=== PATIENT | male | born 1965 | race Caucasian/White ===

== ENCOUNTER 2020-05-23 08:02 | Outpatient (CLI) | payer BC, SELFPAY ==
--- NOTE | ~2020-05-23 | XR_ITS ---
EXAMINATION: XR barium swallow DATE: 05/23/2020 09:17 INDICATION: Dysphagia. TECHNIQUE: The patient drank thick barium, gas-producing crystals, and thin barium. Fluoroscopy of th e hypopharynx and esophagus was performed. Fluoroscopy exposure time was 0.5 minutes. The total numbe r of images was 269. The dose-area product was 2.175 Gy-cm^2. COMPARISON: None. FINDINGS: There is a small sliding hiatal hernia. A Schatzki ring is noted. Esophageal motility is no rmal. There was no gastroesophageal reflux with provocative maneuvers. IMPRESSION: 1. Small sliding hiatal hernia. 2. Schatzki ring. Reviewed, dictated and finalized at location B.
== END 2020-05-23 08:03 | disposition home or self-care (01) ==
PROVIDERS: PCP Internal Medicine; Visit Provider Internal Medicine
DX: R13.10 Dysphagia, unspecified (principal)
CPT/HCPCS: 74220

== ENCOUNTER 2020-05-23 20:51 | Emergency (ER) | payer BC, SELFPAY ==
[2020-05-23 20:56] VITALS: BP 138/94; PULSE 91; RESP 14; TEMP 36.8; O2SAT 95
--- NOTE | 2020-05-23 21:00 | ED.GENADULT ---
HPI - General Adult General Chief complaint: Allergic Reaction Stated complaint: swelling in face Source: patient Mode of arrival: ambulatory Limitations: no limitations History of Present Illness HPI narrative: Bishop is a 55M with a PMH of GERD that presented to the ED with swelling in his neck. 20 minutes before coming to the ED he feels like the area under his chin and up to his ears bilaterally started to swell. It was accompanied by an itching in his throat. No tongue or lip swelling. He denies any SOB, CP, cough, syncope, or near syncope. He recently started a new medicine for GERD yesterday and had his first Barium swallow this morning. Related Data Home Medications Medication Instructions Recorded Confirmed pantoprazole 40 mg PO QAM 05/23/20 05/23/20 Allergies Allergy/AdvReac Type Severity Reaction Status Date / Time No Known Allergies Allergy Unknown Unverified 06/16/15 10:33 Review of Systems Constitutional: Constitutional: Denies chills and Denies fever(s) Eyes: Eyes: Reports no additional eye complaints ENT: Reports as per HPI Cardiovascular: Cardiovascular: Reports no additional cardiovascular complaints Respiratory: Respiratory: Reports no additional respiratory complaints Gastrointestinal: Gastrointestinal: Reports no additional gastrointestinal complaints Musculoskeletal: Musculoskeletal: Reports no additional musculoskeletal complaints Integumentary/Breasts: Skin/Breast: Reports system reviewed and no additional complaints, except as docu Neurologic: Reports system reviewed and no additional complaints, except as documented Psychiatric: Psychiatric: Reports no additional psychiatric complaints Endocrine: Endocrine: Reports no additional endocrine complaints Hematologic/Lymphatic: Hematologic/Lymphatic: Reports no additional hematologic/lymphatic complaints Allergic/Immunologic: Allergic/Immunologic: Reports no additional allergic/immunologic complaints Exam Const: General: no acute distress and alert Orientation/consciousness: patient oriented x3 Limitations: No altered mental status HENMT: Other: Did have slight swelling of the tissue underneath his chin and under his mandible. No tongue or lip swelling. Normocephalic. Atraumatic. Eyes: Conjunctivae: conjunctivae normal Pupils: Equal, round and reactive pupils present Neck: Other: sub mandibular and anterior cervical lymphadenopathy bilaterally. Chest: Chest palpation & inspection: normal inspection of the chest Resp: Effort & Inspection: normal respiratory effort, not labored and not tachypneic Auscultation: clear to auscultation bilaterally Cardio: Rate: regular rate Rhythm: regular rhythm Heart sounds: no murmurs GI: Inspection: non-distended GI Palp: Yes Soft to palpation and No Tenderness to palpation present (GI) Skin: General skin exam: normal color Rashes: no rashes Neuro: General: patient oriented x3 and moves all extremities Extrem: General: normal to inspection Psych: Appearance: grossly normal Mental Status: mental status grossly normal Thought content: Yes Normal thought content present Course Course Emergency Course: Bishop was seen. He was given 50mg of benadryl IM and 40mg of famotidine PO. Shortly after receiving this he started having resolution of symptoms. He was observed for another 2 hours during which time the symptoms continued to improve. Later he was discharged and instructed to take OTC benadryl and famotidine if symptoms returned. Vital Signs Vital signs: Vital Signs Temperature 98.3 F 05/23/20 20:56 Pulse Rate 91 05/23/20 20:56 Respiratory Rate 14 05/23/20 20:56 Blood Pressure 138/94 H 05/23/20 20:56 Pulse Oximetry 95 05/23/20 20:56 Temperature 98.3 F 05/23/20 20:56 Pulse Rate 91 05/23/20 20:56 Respiratory Rate 14 05/23/20 20:56 Blood Pressure 138/94 H 05/23/20 20:56 Pulse Oximetry 95 05/23/20 20:56 Medical Decision Making Vital Sig
[2020-05-23] MEDS: FAMOTIDINE 20 MG TABLET 40 MG PO (21:09)
[2020-05-23] MEDS: diphenhydrAMINE HCl INJ 50 MG/ML VIAL IM (21:09)
--- NOTE | 2020-05-23 23:27 | PC.NURSE ---
discharge inst reviewed, rodolfo called
[2020-05-23 23:34] VITALS: BP 146/70; PULSE 74; RESP 18; TEMP 36.6; O2SAT 98
== END 2020-05-23 23:36 | disposition home or self-care (01) ==
PROVIDERS: Emergency Provider Family Medicine; PCP Internal Medicine
DX: T78.40XA Allergy, unspecified, initial encounter (principal)
CPT/HCPCS: 96372; 99283; A9270; J1200

== ENCOUNTER → 2020-11-25 00:48 | Outpatient (CLI) | payer BC, SELFPAY ==
[2020-11-25 20:45] LABS: SARS-CoV-2 RNA PCR Negative
== END ==
PROVIDERS: PCP Internal Medicine; Visit Provider Internal Medicine Gastroenterology
DX: Z01.812 Encounter for preprocedural laboratory examination (principal); Z20.822 Contact with and (suspected) exposure to COVID-19
CPT/HCPCS: C9803; U0003; U0005

== ENCOUNTER 2020-11-28 00:25 | Day surgery (SDC) | payer BC, SELFPAY ==
[2020-11-17 14:45] VITALS: BMI 33.5
[2020-11-28 13:24] VITALS: BP 138/82; PULSE 63; RESP 18; TEMP 36.3; O2SAT 95
--- NOTE | 2020-11-28 13:32 | WPDANESEPPF ---
Anes - Initial Pre Proc Eval Procedure: Operation Date: 11/28/20 14:00 Proposed Procedures p Esophagogastroduodenoscopy - Candelario Mcneill MD Date/Time: 11/28/20 13:32 Surgeon: Candelario Mcneill MD Pre Op Diagnosis: Dysphagia, GERD Patient Data Age: 55 Gender: M Height: 5 ft 10 in Weight: 108 kg Last Vital Signs Temp 97.4 F L 11/28/20 13:24 Pulse 63 11/28/20 13:24 Resp 18 11/28/20 13:24 BP 138/82 11/28/20 13:24 Pulse Ox 95 11/28/20 13:24 Allergies Allergy/AdvReac Type Severity Reaction Status Date / Time No Known Allergies Allergy Unknown Verified 11/28/20 13:22 Home Medications Medication Instructions Recorded Confirmed Type No Home Medications 11/17/20 11/17/20 History Patient hx anesthesia problems: none Family hx anesthesia problems: none [facility] Past Medical History Medical History (Updated 05/30/20 @ 11:40 by Clotilde Barragan APN-Reena) Dysphagia Encounter for colonoscopy in patient with family history of colon cancer Family history of colon cancer Hiatal hernia Obesity (BMI 30.0-34.9) Social History Social History Smoking packs per day: 0.5 Smoking cigarettes per day: 10.0 Years smoked: 12 Smoking pack-years: 6.00 Smoking status: Former smoker Tobacco type: cigarettes Alcohol intake: never Substance use: never Substance use type: does not use Living arrangements: with family Spiritual care concerns: No Anes - Eval Final PreProcedure Day of Procedure 11/28/20 13:32 Patient weight: obese Heart: regular rate and rhythm Lungs: clear to auscultation Airway: Mallampati scale class III Neurological: alert and oriented Last oral intake: >/= 8 hours ASA classification: II Emergent: no Anesthetic plan: proceed Anesthesia type and monitoring: general GIVS and standard monitoring Informed Consent: The patient's anesthetic plan and its attendant risks and benefits were discussed with the patient/family/POA. Questions were solicited and answers provided to the satisfaction of the patient/family/POA.
[2020-11-28] MEDS: LACTATED RINGERS 1,000 ML 150 ML IV CONT (13:35)
--- NOTE | 2020-11-28 13:47 | PM.HPGS ---
History of Present Illness History of Present Illness Consent: Risks, benefits, and alternatives have been discussed and questions answered. Patient agrees to proceed with procedure. Chief complaint: Dysphagia, GERD Narrative: Bishop Langston is a 55 year old male with dysphagia after eating solids, esophagram showed possible ring, never had EGD Review of Systems Constitutional: Constitutional: Denies headache(s) and Denies weakness Eyes: Eyes: Denies blurry vision ENT: Reports Normal hearing present, Denies headache(s) and Denies neck pain Cardiovascular: Cardiovascular: Denies chest pain and Denies dyspnea Respiratory: Respiratory: Denies dyspnea Gastrointestinal: Gastrointestinal: Reports no additional gastrointestinal complaints Genitourinary: Genitourinary: Denies dysuria Musculoskeletal: Musculoskeletal: Denies neck pain Integumentary/Breasts: Skin/Breast: Denies dry skin Neurologic: Reports Normal hearing present, Denies headache(s) and Denies weakness Psychiatric: Psychiatric: Denies anxiety Endocrine: Endocrine: Denies change in body appearance Hematologic/Lymphatic: Hematologic/Lymphatic: Denies easy bleeding Allergic/Immunologic: Allergic/Immunologic: Denies urticaria [facility] Past Medical History Medical History (Updated 05/30/20 @ 11:40 by VIJAY FamN-C) Dysphagia Encounter for colonoscopy in patient with family history of colon cancer Family history of colon cancer Hiatal hernia Obesity (BMI 30.0-34.9) Social History Social History Smoking packs per day: 0.5 Smoking cigarettes per day: 10.0 Years smoked: 12 Smoking pack-years: 6.00 Smoking status: Former smoker Tobacco type: cigarettes Alcohol intake: never Substance use: never Substance use type: does not use Living arrangements: with family Spiritual care concerns: No Meds Home Medications and Allergies Home Medications Medication Instructions Recorded Confirmed Type No Home Medications 11/17/20 11/17/20 History Allergies Allergy/AdvReac Type Severity Reaction Status Date / Time No Known Allergies Allergy Unknown Verified 11/28/20 13:22 Vital Signs Vital Signs - 24 hr 11/28/20 13:24 Temperature 97.4 F L Pulse Rate 63 Respiratory Rate 18 Blood Pressure 138/82 Pulse Oximetry 95 Exam Const: General: comfortable and no acute distress HENMT: General nose exam: Normal nares present Eyes: General: appearance normal, both eyes and all related structures Neck: Neck: no JVD Resp: Auscultation: clear to auscultation bilaterally Cardio: Rate: regular rate Rhythm: regular rhythm GI: Inspection: non-distended GI Palp: Yes Soft to palpation Skin: General skin exam: normal color Neuro: General: gait normal Speech: normal speech Extrem: General: normal to inspection Psych: Mental Status: mental status grossly normal Assessment and Plan Assessment and plan (1) Dysphagia: Code(s): R13.10 - Dysphagia, unspecified Status: Acute Assessment and Plan: egd to assess, if ring then will need dilation
[2020-11-28] MEDS: BENZOCAINE (*SP) 60 ML SPRAY CAN (HURRICAINE) 1 SPRAY MUCOUS MEM (13:54)
[2020-11-28 14:09] VITALS: BP 135/73; PULSE 70; RESP 20; O2SAT 96
[2020-11-28 14:19] VITALS: BP 122/67; PULSE 66; RESP 20; O2SAT 97
[2020-11-28 14:29] VITALS: BP 104/63; PULSE 56; RESP 18; O2SAT 98
== END 2020-11-28 14:40 | disposition home or self-care (01) ==
PROVIDERS: PCP Internal Medicine; Visit Provider Internal Medicine Gastroenterology
PROC: 0DJ08ZZ Inspection of Upper Intestinal Tract, Via Natural or Artificial Opening Endoscopic (ICD-10-PCS; CPT 43235; principal; 2020-11-28 14:00)
DX: R13.10 Dysphagia, unspecified (principal); K22.2 Esophageal obstruction; K44.9 Diaphragmatic hernia without obstruction or gangrene; E66.9 Obesity, unspecified; Z87.891 Personal history of nicotine dependence; Z80.0 Family history of malignant neoplasm of digestive organs
CPT/HCPCS: 43249; 43239; 88305; C1726; J2704; J7120

== ENCOUNTER 2021-10-15 01:10 | Day surgery (SDC) | payer BC, SELFPAY ==
[2021-09-30 14:09] VITALS: BMI 32.5
--- NOTE | 2021-10-15 09:09 | P.PNAN_ITS ---
Anes - Initial Pre Proc Eval Procedure: Operation Date: 10/15/21 11:00 Proposed Procedures p Screening Colonoscopy - Demetrio Herrera MD Date/Time: 10/15/21 09:09 Surgeon: Demetrio Herrera MD Pre Op Diagnosis: family hx of colon ca, neoplasm screening Patient Data Age: 56 Gender: M Height: 1.78 m Weight: 103 kg Allergies Allergy/AdvReac Type Severity Reaction Status Date / Time No Known Allergies Allergy Unknown Verified 10/15/21 09:51 Home Medications Medication Instructions Recorded Confirmed Type Centrum Men 1 tablet PO DAILY 09/30/21 10/15/21 History Patient hx anesthesia problems: none Family hx anesthesia problems: none Results Review: All pre-operative results and documents have been reviewed as part of the pre-operative evaluation. [facility] Past Medical History Medical History (Updated 10/15/21 @ 09:09 by Chapincito Gomez DO) Dysphagia Encounter for colonoscopy in patient with family history of colon cancer Family history of colon cancer GERD (gastroesophageal reflux disease) Hiatal hernia Obesity (BMI 30.0-34.9) GENIE (obstructive sleep apnea) Social History Social History Smoking packs per day: 0.5 Smoking cigarettes per day: 10.0 Years smoked: 12 Smoking pack-years: 6.00 Smoking status: Former smoker Tobacco type: cigarettes Alcohol intake: former Substance use: never Substance use type: does not use Living arrangements: with family Spiritual care concerns: No Anes - Eval Final PreProcedure Day of Procedure 10/15/21 09:09 Patient weight: obese Heart: regular rate and rhythm Lungs: clear to auscultation and normal air movement Airway: Mallampati scale class II Neurological: alert and oriented Last oral intake: >/= 8 hours ASA classification: III Emergent: no Anesthetic plan: proceed Anesthesia type and monitoring: general GIVS and standard monitoring Results Review: All pre-operative results and documents have been reviewed as part of the pre-operative evaluation. Informed Consent: The patient's anesthetic plan and its attendant risks and benefits were discussed with the patient/family/POA. Questions were solicited and answers provided to the satisfaction of the patient/family/POA.
[2021-10-15 09:52] VITALS: BP 155/92; PULSE 72; RESP 20; TEMP 36.1; O2SAT 98; BMI 34.0
[2021-10-15] MEDS: LACTATED RINGERS 1,000 ML 150 ML IV CONT (10:04)
--- NOTE | 2021-10-15 10:21 | P.CONGI_ITS ---
Assessment and Plan Assessment and plan (1) Family history of colon cancer: Code(s): Z80.0 - Family history of malignant neoplasm of digestive organs Status: Acute Assessment and Plan: Patient has a family history of colon cancer in his brother, colon polyps in his sister. Plan is for surveillance colonoscopy now and at 5 year intervals in the future. GI Consult Note Consult date/time: 10/15/21 10:21 HPI: Bishop Langston is a 56 year old male Presents for screening colonosc opy. Patient reports that his current weight appetite bowel movements are normal. He denies abdominal pain. He has had no bleeding. Family history is significant his brother had colon cancer a sister has had colon polyps. Patient's most recent colonoscopy 6 or 7 years ago was unremarkable. Patient presents today for neoplasia screening. Review of Systems Review of Systems: All systems reviewed & are unremarkable except as noted in HPI and below PMFSH Past Medical History Medical History (Updated 10/15/21 @ 09:09 by Chapincito Gomez, ) Dysphagia Encounter for colonoscopy in patient with family history of colon cancer Family history of colon cancer GERD (gastroesophageal reflux disease) Hiatal hernia Obesity (BMI 30.0-34.9) GENIE (obstructive sleep apnea) Social History Social History (Reviewed 05/30/20 @ 11:08 by Patricia Goodrich [facility]) Smoking packs per day: 0.5 Smoking cigarettes per day: 10.0 Years smoked: 12 Smoking pack-years: 6.00 Smoking status: Former smoker Tobacco type: cigarettes Alcohol intake: former Substance use: never Substance use type: does not use Living arrangements: with family Spiritual care concerns: No Meds Home Medications and Allergies Home Medications Medication Instructions Recorded Confirmed Type Centrum Men 1 tablet PO DAILY 09/30/21 10/15/21 History Allergies Allergy/AdvReac Type Severity Reaction Status Date / Time No Known Allergies Allergy Unknown Verified 10/15/21 09:51 Vital Signs Vital Signs - 24 hr 10/15/21 09:52 Temperature 96.9 F L Pulse Rate 72 Respiratory Rate 20 Blood Pressure 155/92 H Pulse Oximetry 98 Exam Narrative: Physical exam reveals patient to be alert. Vital signs stable. HEENT exam is unremarkable. Patient is anicteric. Lungs are clear to auscultation and percussion. Heart is without murmur or extra sounds. Abdominal exam is somewhat obese. Bowel sounds present soft nontender with no hepatosplenomegaly. Digital external rectal exam is normal.
[2021-10-15 11:41] VITALS: BP 123/77; PULSE 64; RESP 20; O2SAT 97
[2021-10-15 11:51] VITALS: BP 133/91; PULSE 60; RESP 18; O2SAT 98
[2021-10-15 12:01] VITALS: BP 136/86; PULSE 64; RESP 20; O2SAT 99
== END 2021-10-15 12:10 | disposition home or self-care (01) ==
PROVIDERS: PCP Internal Medicine; Visit Provider Internal Medicine Gastroenterology
PROC: 0DJD8ZZ Inspection of Lower Intestinal Tract, Via Natural or Artificial Opening Endoscopic (ICD-10-PCS; CPT 45378; principal; 2021-10-15 11:00)
DX: Z12.11 Encounter for screening for malignant neoplasm of colon (principal); K64.8 Other hemorrhoids; K57.30 Diverticulosis of large intestine without perforation or abscess without bleeding; Z80.0 Family history of malignant neoplasm of digestive organs; Z83.71 Family history of colonic polyps; K21.9 Gastro-esophageal reflux disease without esophagitis; G47.33 Obstructive sleep apnea (adult) (pediatric); Z87.891 Personal history of nicotine dependence; E66.9 Obesity, unspecified; Z68.34 Body mass index [BMI] 34.0-34.9, adult
CPT/HCPCS: 45378; J2704; J7120

== ENCOUNTER 2023-05-16 07:20 | Outpatient (CLI) | payer OTHER, SELFPAY ==
[2023-05-16 07:39] LABS: Basophils Absolute Auto 0.06 K/mm3 (0.00-0.10); Basophils Percent Auto 0.8 % (0.0-1.0); Eosinophils Absolute Auto 0.32 K/mm3 (0.02-0.50); Eosinophils Percent Auto 4.4 % (1.0-6.0); Hematocrit 44.3 % (40.0-54.0); Hemoglobin 14.8 g/dL (14.0-18.0); Immature Granulocyte Absolute 0.02 K/mm3 (0.00-0.00); Immature Granulocyte Percent A 0.3 % (0.0-0.0); Lymphocytes Absolute Auto 1.96 K/mm3 (1.10-4.50); Lymphocytes Percent Auto 26.9 % (18.0-42.0); Mean Corpuscular HGB Conc 33.4 g/dL (32.0-36.0); Mean Corpuscular Hemoglobin 29.4 pg (27.0-31.0); Mean Corpuscular Volume 88.1 fL (78.0-102.0); Monocytes Absolute Auto 0.65 K/mm3 (0.10-0.90); Monocytes Percent Auto 8.9 % (2.0-11.0); Neutrophils Absolute Auto 4.3 K/mm3 (1.7-7.2); Neutrophils Percent Auto 58.7 % (50.0-70.0); Platelet Count Result 293 K/mm3 (150-420); Red Blood Count 5.03 M/mm3 (4.70-6.10); Red Cell Distribution Width 12.6 % (11.6-14.4); White Blood Count 7.3 K/mm3 (4.8-10.8)
[2023-05-16 07:41] LABS: Appearance Urine Clear (Clear); Bilirubin Urine Negative (Negative); Blood Urine Negative (Negative); Color Urine Light Yellow (Yellow); Glucose Urine UA Negative (Negative); Ketones Urine Negative (Negative); Leukocyte Esterase Ur Negative LEU/UL (Negative); Nitrate Urine Negative (Negative); Protein Urine Negative (Negative); Specific Grav Ur >= 1.030 (1.010-1.020); Urobilinogen Urine 0.2 mg/dL (0.2-1.0)
[2023-05-16 07:55] LABS: Add Urine Microscopic? NO
[2023-05-16 08:01] LABS: Hemoglobin A1C 5.8 % (<5.7)
[2023-05-16 08:29] LABS: Alanine Aminotransferase 25 U/L (16-63); Albumin Level 3.8 g/dL (3.4-5.0); Alkaline Phosphatase 57 U/L (46-116); Anion Gap 9 mmol/L (8-16); Aspartate Amino Transferase 11 U/L (15-37); Bilirubin,Total 0.6 mg/dL (0.00-1.00); Blood Urea Nitrogen 12 mg/dL (7-18); Calcium 9.3 mg/dL (8.5-10.1); Carbon Dioxide 28 mmol/L (21-32); Chloride 106 mmol/L (98-108); Cholesterol 193 mg/dL (0-200); Creatine Kinase 105 U/L (39-308); Estimated Glomerular Filt Rate > 60; Glucose 93 mg/dL (70-99); HDL Direct 45 mg/dL (40-60); LDL Cholesterol Calculated 103 mg/dL (<130); Osmolality Calculated 295 mOsm/kg (285-295); Potassium 4.4 mmol/L (3.5-5.1); Prostate Specific Antigen 2.1 ng/mL (< OR = 4.0); Sodium 143 mmol/L (136-145); Total Protein 6.6 g/dL (6.4-8.2); Triglycerides 224 mg/dL (0-150)
== END 2023-05-16 07:21 | disposition home or self-care (01) ==
LOC: CHSLAB 07:25
PROVIDERS: PCP Internal Medicine; Visit Provider Internal Medicine
DX: Z00.00 Encounter for general adult medical examination without abnormal findings (principal); Z12.5 Encounter for screening for malignant neoplasm of prostate
CPT/HCPCS: 36415; 80053; 80061; 81003; 82550; 83036; 84153; 85025; G0103